=== PATIENT | female | born 1955 | race Caucasian/White ===

== ENCOUNTER 2017-02-03 09:54 | Outpatient (CLI) | payer OTHER ==
[~2017-02-03 09:54] MED LIST: CHOLESTYRAMINE4 GM PO; OMEPRAZOLE20 M1 PO
--- NOTE | 2017-02-03 12:42 | DIAGNOSTIC IMAGING REPORT ---
PROCEDURE: US SOFT TISSUE THYR/NECK/HEAD INDICATION: LIPOMA OF BACK TECHNIQUE: Parks scale and color Doppler imaging of the palpable region in the upper back. COMPARISON: None. FINDINGS: In the area of palpable abnormality midline lower neck, there is an ill-defined, unencapsulated area of mildly more hyperechoic adipose tissue and deep to the subcutaneous adipose. No suspicious shadowing or vascularity. IMPRESSION: 1. Prominent, unencapsulated adipose tissue in the area of palpable abnormality.
== END 2017-02-03 23:00 ==
LOC: US SRH 09:54
DX: E65 Localized adiposity (principal)